=== PATIENT | female | born 1935 | race Caucasian/White ===

== ENCOUNTER 2017-04-09 20:08 | Emergency (ER) | payer MEDICARE ==
[2017-04-09 21:10] LABS: #Eosinphils 0.1 thou/uL (0.0-0.7); #Lymphocytes 0.5 thou/uL (1.20-3.40); #Monocytes 0.7 thou/uL (0.11-0.59); #Neutrophils 9.2 thou/uL (1.40-6.50); %Basophils 0.1 % (0.0-1.0); %Eosinophils 0.6 % (0.0-10.0); %Lymphocytes 5.2 % (21.0-51.0); %Monocytes 6.3 % (0.0-10.0); %Neutrophils 87.9 % (42.0-75.0); Hemoglobin 12.7 g/dL (12.0-16.0); Mean Corpuscular HGB CONC 32.7 g/dL (32.0-36.0); Mean Corpuscular Hemoglobin 28.1 pg (27.0-31.0); Mean Corpuscular Volume 85.9 fl (81.0-99.0); Platelet Count 228 thou/uL (130-400); RBC Distribution Width 12.6 % (11.5-14.5); Red Blood Cell (RBC) Count 4.53 mill/uL (4.20-5.40); White Blood Cell (WBC) Count 10.4 thou/uL (4.8-10.8)
[2017-04-09 21:34] LABS: ALT (SGPT) 17 U/L (8-55); AST (SGOT) 23 U/L (5-34); Albumin 3.9 g/dL (3.4-4.8); Alkaline Phosphatase 118 U/L (40-150); Anion Gap 14 mmol/L (10-20); BUN (Urea Nitrogen) 31 mg/dL (9.8-20.1); Bilirubin, Total 0.3 mg/dL (0.2-1.2); Calc. Creatinine Clearance 0 mL/min (70-130); Calcium 9.3 mg/dL (7.8-10.44); Carbon Dioxide 26 mmol/L (23-31); Chloride 102 mmol/L (98-107); Estimated GFR-MDRD 42; Globulin 3.6 g/dL (2.4-3.5); Glucose 113 mg/dL (83-110); Lipase 57 U/L (8-78); Potassium 4.1 mmol/L (3.5-5.1); Protein, Total 7.5 g/dL (6.0-8.3); Sodium 138 mmol/L (136-145)
[2017-04-09 21:35] LABS: Troponin I Less than 0.010 ng/mL (< 0.028)
[2017-04-09 22:28] LABS: Bilirubin Negative (Negative); Blood, Urine Negative (Negative); Clarity CLEAR (Clear); Glucose, Urine (Dipstick) Negative (Negative); Leukocyte Trace (Negative); Nitrite Negative (Negative); Protein, Urine (Dipstick) Negative (Neg-Trace); Urobilinogen 0.2 mg/dL (0.2-1.0)
[2017-04-09 22:30] LABS: Bacteria/HPF None Seen HPF (None Seen); Hyaline Casts/LPF 0-3 HYALINE CAST LPF (0-3 Hyaline); Pathc Cast-AUWi Flag 0.54 (0-2.49); RBC/HPF 0-3 HPF (0-3); Squamous Epithelial None Seen HPF (0-3); WBC/HPF 0-3 HPF (0-3)
--- NOTE | 2017-05-04 11:44 | EKG ---
Test Reason : Blood Pressure : / mmHG Vent. Rate : 077 BPM Atrial Rate : 077 BPM P-R Int : 148 ms QRS Dur : 076 ms QT Int : 408 ms P-R-T Axes : 065 046 055 degrees QTc Int : 461 ms Normal sinus rhythm Possible Left atrial enlargement Borderline ECG Confirmed by AUGUSTO FONTANEZ, ZACH Melgar ([id number]), city editor WALDEMAR REA ([id number]) on 05/04/2017 11:44:04 AM Referred By: Confirmed By:ZACH CASAS MD
== END 2017-04-09 23:59 | disposition home or self-care (01) ==
LOC: ERS 20:08
DX: R11.2 Nausea with vomiting, unspecified (principal); R10.13 Epigastric pain; I10 Essential (primary) hypertension; Z86.73 Personal history of transient ischemic attack (TIA), and cerebral infarction without residual deficits
CPT/HCPCS: 36415; 80053; 81003; 81015; 83690; 84484; 85025; 93005; 96360

== ENCOUNTER 2017-07-22 10:07 | Emergency (ER) | payer MEDICARE ==
[2017-07-22] MEDS ORDERED: HYDROcodone/Acetaminophen 10/325 mg Tablet ONE (11:26)
--- NOTE | 2017-07-22 11:45 | RAD ---
TWO VIEWS LEFT HIP: HISTORY: Left hip pain. A cow knocked me down on Saturday with left hip pain. FINDINGS: AP and frogleg views of left hip are obtained on 07/22/17. Comparison is made to previous exam from 12/30. Two views left hip demonstrate no evidence of left hip fractures, subluxations, or bony lesions. IMPRESSION: Normal 2 views left hip. POS: [facility]
== END 2017-07-22 12:09 | disposition home or self-care (01) ==
LOC: ERS 10:07
DX: S70.02XA Contusion of left hip, initial encounter (principal); I10 Essential (primary) hypertension; Z86.73 Personal history of transient ischemic attack (TIA), and cerebral infarction without residual deficits; W55.22XA Struck by cow, initial encounter

== ENCOUNTER 2019-03-24 09:32 | Outpatient (CLI) | payer MEDICARE ==
--- NOTE | 2019-03-24 10:43 | RAD ---
CHEST 2 VIEWS: HISTORY: Cough. COMPARISON: 03/22/2019. FINDINGS: Small right pleural effusion. Heart size is within normal limits. Increased linear and interstitial markings bilaterally appear stable. IMPRESSION: 1. Small right pleural effusion showing little change from prior study. Mild stable increased sherice ngs bilaterally. 2. Atherosclerosis of the aorta with ectasia. No evidence for confluent pneumonia. POS: [facility]
== END 2019-03-24 09:33 | disposition home or self-care (01) ==
LOC: RAD 09:32
PROVIDERS: ATTEND Internal Medicine Pulmonary Disease
DX: R06.00 Dyspnea, unspecified (principal); J90 Pleural effusion, not elsewhere classified; R91.8 Other nonspecific abnormal finding of lung field; I70.0 Atherosclerosis of aorta; I77.819 Aortic ectasia, unspecified site
CPT/HCPCS: 71046

== ENCOUNTER 2019-03-24 11:13 | Day surgery (SDC) | payer MEDICARE ==
--- NOTE | 2019-03-24 11:48 | HP ---
HISTORY OF PRESENT ILLNESS: The patient is an 84-year-old female from [facility], who was sent here for a cough for about 7 months' duration. She is a nonsmoker, not drinker, prior history of pneumonia, but no TB or asthma. She has sustained a fall in January, was hospitalized with multiple rib fractures. Now, she had an x-ray taken over the weekend in the ER, which showed some right pleural effusion. Cough is nonproductive. No fever. No chills. Rib fractures were 5th, 6th, 7th, 8th, 9th after a fall in January 2019. HOME MEDICATIONS: 1. MiraLAX 17. 2. Zofran. 3. Lovastatin 20. 4. Ibuprofen 400. 5. Pepcid 20. 6. Zyrtec 10. 7. Ziac 5/6.25 once a day. 8. Amlodipine 10. 9. Tylenol. 10. Calcium. 11. Aspirin. PAST MEDICAL HISTORY: Pertinent mainly for hypertension, high cholesterol. No diabetes. PAST SURGICAL HISTORY: None recently. ALLERGIES: APPARENTLY NONE. SOCIAL AND FAMILY HISTORY: She has never been . Lives alone. 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 REVIEW OF SYSTEMS: Otherwise 10-point negative. PHYSICAL EXAMINATION: VITAL SIGNS: Sats were 94% on room air, pulse 80, blood pressure CHEST: Decreased breath sounds, right lung. Left lung unremarkable. CARDIAC: Normal S1, S2. No gallops. ABDOMEN: Soft without masses. X-ray shows right pleural effusion. IMPRESSION: 1. Right pleural effusion, chronic cough, probably secondary to multiple rib fractures. 2. Mild hypertension. 3. Reflux. 4. Nonsmoker. 5. Advanced age. 6. Diagnostic therapeutic thoracentesis to be performed. Further recommendation as above. Job ID: [id number]
--- NOTE | 2019-03-24 12:51 | RAD ---
XR Chest 1 View Portable HISTORY: Thoracentesis COMPARISON: Earlier exam of 9:47 AM from same date FINDINGS: There is been interval improvement in the right pleural effusion since the previous study. No pneumothorax is seen.
[2019-03-24 13:15] LABS: RBC Count-Automated (BF) 46553 /cumm; WBC/Nucleated-Auto (BF) 2311 uL
[2019-03-24 13:39] LABS: Body Fluid Source Thoracentesis Fluid; Clarity Cloudy/Turbid (Clear)
[2019-03-24 13:40] LABS: BF Color Red; Tube # EDTA
[2019-03-24 13:47] LABS: Cell Count Non Hematic 63 %; Lymphocytes 37 %
--- NOTE | 2019-03-24 17:37 | DIS ---
DATE OF ADMISSION: 03/24/2019 DATE OF DISCHARGE: 03/24/2019 She tolerated the thoracentesis well. She will be discharged home on prednisone 10 mg a day for 10 days, doxycycline 100 mg twice a day for a week. Chest x-ray post thoracentesis is stable. Follow up with Dr. Henson. Follow up with Dr. Cortés as needed. Job ID: [id number]
--- NOTE | 2019-03-25 09:02 | OP ---
DATE OF PROCEDURE: 03/24/2019 PROCEDURE PERFORMED: Thoracentesis. INDICATION: Right pleural effusion, probably traumatic rib fractures. DESCRIPTION OF PROCEDURE: After informed consent, the right posterior thorax was cleaned with chlorhexidine. 1% lidocaine infiltrated in the 9th intercostal space in post scapula area and the pleural cavity entered, using a 22-gauge needle, pleural space was entered in and bloody effusion removed about 20 mL. Thereafter, using an 8-Telugu catheter, total of additional 400 mL was removed without difficulty. The patient tolerated the procedure well. Please note, results of the pleural effusionwill be revealed to the patient, family, and Dr. Henson. The patient otherwise tolerated the procedure well. As noted, pleural effusion sent for appropriate studies including cytology and culture. Job ID: [id number] [id number]
== END 2019-03-24 12:55 | disposition home or self-care (01) ==
LOC: SDC 11:13
PROVIDERS: ATTEND Internal Medicine Pulmonary Disease
PROC: 0BJQ3ZZ Inspection of Pleura, Percutaneous Approach (ICD-10-PCS; principal; 2019-03-24)
DX: J90 Pleural effusion, not elsewhere classified (principal); I10 Essential (primary) hypertension; E11.9 Type 2 diabetes mellitus without complications; E78.00 Pure hypercholesterolemia, unspecified; Z79.82 Long term (current) use of aspirin; Z79.899 Other long term (current) drug therapy; K21.9 Gastro-esophageal reflux disease without esophagitis
CPT/HCPCS: 32554; 71045; 71046; 82150; 82945; 83615; 83986; 84157; 84478; 85060; 87070; 87116; 87205; 87206; 88112; 88305; 89051; J1642

== ENCOUNTER 2023-11-12 13:50 | Emergency (ER) | payer MEDICARE ==
[~2023-11-12 13:50] MED LIST: Iopamidol-370 76% 500 ML MDV (1 ML CHARGE) ONE
[2023-11-12 15:08] LABS: #Basophils 0.03 10x3/uL (0.0-0.2); %Basophils 0.7 % (0.0-1.0); %Eosinophils 1.9 % (0.0-10.0); %Lymphocytes 16.7 % (21.0-51.0); %Monocytes 14.5 % (0.0-10.0); %Neutrophils 65.5 % (42.0-75.0); Hematocrit 40.9 % (36.0-47.0); Hemoglobin 13.2 g/dL (12.0-16.0); Mean Corpuscular HGB CONC 32.3 g/dL (32.0-36.0); Mean Corpuscular Hemoglobin 27.8 pg (27.0-31.0); Mean Corpuscular Volume 86.1 fL (78.0-98.0); Mean Platelet Volume 10.5 fL (7.4-10.4); Platelet Count 209 10x3/uL (130-400); RBC Distribution Width 14.5 % (11.5-14.5); Red Blood Cell (RBC) Count 4.75 mill/uL (4.20-5.40)
[2023-11-12 15:27] LABS: ALT (SGPT) 41 U/L (8-55); AST (SGOT) 56 U/L (5-34); Albumin 3.9 g/dL (3.4-4.8); Alkaline Phosphatase 113 U/L (40-110); Anion Gap 15 mmol/L (10-20); BUN (Urea Nitrogen) 20 mg/dL (9.8-20.1); Bilirubin, Total 0.3 mg/dL (0.2-1.2); Calc. Creatinine Clearance 0 mL/min (70-130); Calcium 9.2 mg/dL (7.8-10.44); Carbon Dioxide 19 mmol/L (23-31); Chloride 113 mmol/L (98-107); Estimated GFR 49; Globulin 3.7 g/dL (2.4-3.5); Glucose 110 mg/dL (83-110); Lipase 26 U/L (8-78); Potassium 3.7 mmol/L (3.5-5.1); Protein, Total 7.6 g/dL (5.8-8.1); Sodium 143 mmol/L (136-145)
[2023-11-12 20:13] LABS: Bilirubin Negative (Negative); Blood, Urine 3+ (Negative); CAUTI Indications for Culture Dysuria,urgency,freq; Clarity Turbid (Clear); Glucose, Urine (Dipstick) 30 mg/dL (Negative); Ketone, Urine Negative (Negative); Leukocyte 250 Leu/uL (Negative); Nitrite 2+ (Negative); Protein, Urine (Dipstick) 20 mg/dL (Neg-Trace); Specific Gravity, Urine 1.027 (1.002-1.036); Squamous Epithelial None Seen HPF (0-3); Urobilinogen Normal mg/dL (Less than 2); pH, Urine 5.5 (5.0-9.0)
[2023-11-12 20:15] LABS: Bacteria/HPF 1+ HPF (None Seen); RBC/HPF 21-50 HPF (0-3)
[2023-11-12 20:16] LABS: Urine Culture Reflex No No
[2023-11-12 23:08] LABS: Campy jejuni + coli by PCR Negative (Negative); STEC Shiga Toxin 1+2 Negative (Negative); Salmonella spp. by PCR Negative (Negative); Shigella spp + EIEC by PCR Negative (Negative)
== END 2023-11-12 19:00 | disposition home or self-care (01) ==
LOC: ERS 13:50
DX: R19.7 Diarrhea, unspecified (principal); N39.0 Urinary tract infection, site not specified; I10 Essential (primary) hypertension; E78.5 Hyperlipidemia, unspecified
CPT/HCPCS: 74177; 80053; 81001; 83690; 85025; 87324; 87328; 87329; 87449; 87505; 99284; Q9967; 82274